=== PATIENT | male | born 1990 | race African-American/Black ===

== ENCOUNTER 2021-05-04 12:49 | Emergency (ER) | payer OTHER ==
[2021-05-04 12:56] VITALS: BP 120/70; PULSE 68; TEMP 98.4; BMI 32.3
[2021-05-04] MEDS ORDERED: SODIUM CHLORIDE 1,000 ML IV STA (13:28)
[2021-05-04] MEDS ORDERED: ACETAMINOPHEN 1000 MG/100 ML VIAL IVPB ONE (13:29)
[2021-05-04] MEDS ORDERED: ACETAMINOPHEN INJECTION 100 ML IVPB ONE (13:39)
[2021-05-04 14:23] LABS: BASO % 0.6 % (0-2.0); EOS % 3.6 % (0-4.5); HEMATOCRIT 49.8 % (35.4-49); HEMOGLOBIN 17.4 GM/dL (11.7-16.9); LYMPH % 35.4 % (8-40); MEAN CELL VOLUME 91.4 fl (80-96); MONO % 9.3 % (3.8-10.2); NEUT % 51.1 % (42.8-82.8); PLATELET COUNT 227 10^3/uL (134-434); RBC 5.45 M/mm3 (4.00-5.60); RDW 13.6 % (11.9-15.9); WHITE BLOOD COUNT 4.8 K/mm3 (4.0-10.0)
[2021-05-04 14:28] LABS: INR 0.99 (0.83-1.09); PROTHROMBIN TIME (PATIENT) 11.1 SEC (9.7-13.0)
[2021-05-04 14:45] LABS: CHLORIDE 105 mmol/L (98-107); SODIUM 139 mmol/L (136-145)
[2021-05-04 14:52] LABS: ALBUMIN 3.7 g/dl (3.4-5.0); ANION GAP 4 MMOL/L (8-16); BLOOD UREA NITROGEN 14.6 mg/dL (7-18); CALCIUM 9.1 mg/dL (8.5-10.1); CO2 30 mmol/L (21-32); GLUCOSE,RANDOM 115 mg/dL (74-106); MAGNESIUM 2.3 mg/dL (1.8-2.4)
[2021-05-04 14:55] LABS: CREATININE 1.2 mg/dL (0.55-1.3); SGOT/AST 20 U/L (15-37); SGPT/ALT 48 U/L (13-61)
[2021-05-04 14:57] LABS: ALK PHOS 92 U/L (45-117); BILIRUBIN,TOTAL 0.9 mg/dL (0.2-1); TOT PROT 7.6 g/dl (6.4-8.2)
== END 2021-05-04 15:42 | disposition home or self-care (01) ==
LOC: JER 12:49
PROC: 3E0333Z Introduction of Anti-inflammatory into Peripheral Vein, Percutaneous Approach (ICD-10-PCS; principal; 2021-05-04)
PROC: 3E0337Z Introduction of Electrolytic and Water Balance Substance into Peripheral Vein, Percutaneous Approach (ICD-10-PCS; 2021-05-04)
DX: R07.81 Pleurodynia (principal)
CPT/HCPCS: 36415; 71046-TC-FY; 80053; 82550; 82553; 83735; 84484; 85025; 85379; 85610; 85730; 93005; 93010; 99285-25; C9803; J0131; U0003; U0005

== ENCOUNTER 2023-01-22 17:47 | Emergency (ER) | payer OTHER ==
[2023-01-22 17:53] VITALS: BP 125/71; PULSE 80; RESP 18; TEMP 98; BMI 30.9
== END 2023-01-22 21:57 | disposition home or self-care (01) ==
LOC: JER 17:47
DX: R07.89 Other chest pain (principal); R00.2 Palpitations
CPT/HCPCS: 36415; 84484; 93005; 93010; 99284-25

== ENCOUNTER 2024-01-25 08:52 | Emergency (ER) | payer OTHER ==
[2024-01-25 09:01] VITALS: BP 133/76; PULSE 101; RESP 20; TEMP 98.6; BMI 32.3
[2024-01-25] MEDS ORDERED: MAG HYDROX/AL HYDROX/SIMETH 30 ML UNIT-DOSE CUP ONE (10:05)
[2024-01-25] MEDS ORDERED: KETOROLAC TROMETHAMINE 30 MG/1 ML VIAL ONE (10:05)
[2024-01-25 10:11] LABS: BASO % 0.4 % (0-2.0); EOS % 0.2 % (0-4.5); HEMATOCRIT 51.5 % (35.4-49); HEMOGLOBIN 17.6 GM/dL (11.7-16.9); LYMPH % 22.5 % (8-40); MCH 32.1 pg (25.7-33.7); MCHC 34.3 g/dl (32.0-35.9); MEAN CELL VOLUME 93.8 fl (80-96); MEAN PLT VOLUME 7.9 fl (7.5-11.1); MONO % 7.5 % (3.8-10.2); NEUT % 69.4 % (42.8-82.8); PLATELET COUNT 278 10^3/uL (134-434); RBC 5.49 M/mm3 (4.00-5.60); RDW 13.9 % (11.9-15.9); WHITE BLOOD COUNT 7.5 K/mm3 (4.0-10.0)
[2024-01-25] MEDS: KETOROLAC TROMETHAMINE 30 MG/1 ML VIAL IVPUSH ONE (10:11)
[2024-01-25] MEDS: MAG HYDROX/AL HYDROX/SIMETH 30 ML UNIT-DOSE CUP PO ONE (10:11)
[2024-01-25] MEDS: SODIUM CHLORIDE 0.9% 500 ML INFUS.BAG IV ONE (10:11)
[2024-01-25] MEDS ORDERED: ONDANSETRON 4 MG/2 ML VIAL ONE (10:26)
[2024-01-25] MEDS: ONDANSETRON 4 MG/2 ML VIAL IVPUSH ONE (10:28)
[2024-01-25 10:33] LABS: POTASSIUM 4.2 mmol/L (3.5-5.1)
[2024-01-25 10:34] LABS: CALCIUM 9.3 mg/dL (8.5-10.1)
[2024-01-25 10:35] LABS: BLOOD UREA NITROGEN 14.2 mg/dL (7-18)
[2024-01-25 10:38] LABS: CREATININE 1.2 mg/dL (0.55-1.3)
[2024-01-25 10:39] LABS: TOT PROT 8.3 g/dl (6.4-8.2)
[2024-01-25 10:40] LABS: BILIRUBIN,TOTAL 0.9 mg/dL (0.2-1)
== END 2024-01-25 11:34 | disposition home or self-care (01) ==
LOC: JERFT 08:52
PROC: 3E0333Z Introduction of Anti-inflammatory into Peripheral Vein, Percutaneous Approach (ICD-10-PCS; principal; 2024-01-25)
PROC: 3E033GC Introduction of Other Therapeutic Substance into Peripheral Vein, Percutaneous Approach (ICD-10-PCS; 2024-01-25)
DX: R11.2 Nausea with vomiting, unspecified (principal); R53.83 Other fatigue; M79.10 Myalgia, unspecified site; T38.3X5A Adverse effect of insulin and oral hypoglycemic [antidiabetic] drugs, initial encounter; E86.0 Dehydration; Z20.822 Contact with and (suspected) exposure to COVID-19
CPT/HCPCS: 0241U-QW; 36415; 80053; 85025; 99284-25